=== PATIENT | female | born 1940 | race Caucasian/White ===

== ENCOUNTER 2023-01-27 12:24 | Outpatient (CLI) | payer MEDICARE | END 2023-01-27 12:25 | disposition home or self-care (01) | LOC: CSHCP 12:24 | PROVIDERS: ATTEND Radiology Radiation Oncology | DX: C34.31 Malignant neoplasm of lower lobe, right bronchus or lung (principal); R94.2 Abnormal results of pulmonary function studies | CPT/HCPCS: 94010; 94726; 94729; 94760 ==

== ENCOUNTER 2024-01-12 09:18 | Outpatient (CLI) | payer MEDICARE | END 2024-01-12 09:19 | disposition home or self-care (01) | LOC: CSHULT 09:18 | PROVIDERS: ATTEND Urology | DX: N13.30 Unspecified hydronephrosis (principal); N28.1 Cyst of kidney, acquired | CPT/HCPCS: 76770 ==